=== PATIENT | female | born 1990 | race Caucasian/White ===

== ENCOUNTER → 2017-01-28 | Outpatient (CLI) | payer OTHER ==
[2014-10-16 00:02] VITALS: BP 140/90
--- NOTE | 2017-01-28 15:39 | RAD ---
Radionuclide gastric emptying study, 01/28/2017: History: Hiatal hernia, Gastroparesis This study was performed utilizing a solid test meal radiolabeled with 2.2 mCi of technetium 99m sulfur colloid. There is very little emptying of the stomach over the one hour in which we imaged. The time/activity curve is relatively flat. An accurate T1/2 cannot be calculated in this situation. IMPRESSION: Markedly delayed gastric emptying
== END | disposition home or self-care (01) ==
LOC: NM 13:47
PROVIDERS: ATTEND Internal Medicine Gastroenterology
DX: K31.84 Gastroparesis (principal); K30 Functional dyspepsia
CPT/HCPCS: 78264; A9541

== ENCOUNTER → 2017-07-01 | Outpatient (CLI) | payer OTHER ==
[2014-10-16 00:02] VITALS: BP 140/90
[2017-07-01 12:39] LABS: FREE T4 1.57 ng/dL (0.76-1.46)
== END | disposition home or self-care (01) ==
LOC: LAB 11:48
DX: E03.9 Hypothyroidism, unspecified (principal)
CPT/HCPCS: 36415; 84439; 84443

== ENCOUNTER → 2017-07-05 | Outpatient (CLI) | payer OTHER ==
[2014-10-16 00:02] VITALS: BP 140/90
== END | disposition home or self-care (01) ==
LOC: SPEC 14:35
DX: E03.9 Hypothyroidism, unspecified (principal)
CPT/HCPCS: 88175

== ENCOUNTER → 2017-10-20 | Outpatient (CLI) | payer OTHER ==
[2017-10-20 07:42] LABS: THYROID STIM HORMONE (TSH) 0.051 uIU/mL (0.358-3.74)
== END | disposition home or self-care (01) ==
LOC: LAB 05:34
DX: E03.9 Hypothyroidism, unspecified (principal)
CPT/HCPCS: 36415; 84443

== ENCOUNTER → 2017-12-05 | Outpatient (CLI) | payer OTHER ==
[2017-12-05 06:18] LABS: THYROID STIM HORMONE (TSH) 4.143 uIU/mL (0.358-3.74)
== END | disposition home or self-care (01) ==
LOC: LAB 04:34
DX: E03.9 Hypothyroidism, unspecified (principal)
CPT/HCPCS: 36415; 84443

== ENCOUNTER → 2019-03-12 | Outpatient (CLI) | payer OTHER ==
[2014-10-16 00:02] VITALS: BP 140/90
== END | disposition home or self-care (01) ==
LOC: LAB 10:43
PROVIDERS: ATTEND Nurse Practitioner Family
DX: E03.9 Hypothyroidism, unspecified (principal)
CPT/HCPCS: 36415; 84436; 84443

== ENCOUNTER → 2019-05-01 | Outpatient (CLI) | payer OTHER ==
[2014-10-16 00:02] VITALS: BP 140/90
== END | disposition home or self-care (01) ==
LOC: LAB 22:23
PROVIDERS: ATTEND Nurse Practitioner Family
DX: E03.9 Hypothyroidism, unspecified (principal)
CPT/HCPCS: 36415; 84443

== ENCOUNTER → 2020-01-10 | Outpatient (CLI) | payer OTHER ==
[2014-10-16 00:02] VITALS: BP 140/90
== END | disposition home or self-care (01) ==
LOC: LAB 06:18
PROVIDERS: ATTEND Internal Medicine Pulmonary Disease
DX: Z20.828 Contact with and (suspected) exposure to other viral communicable diseases (principal)
CPT/HCPCS: 36415; 99001; U0001

== ENCOUNTER 2020-04-08 12:01 | Emergency (ER) | payer SELFPAY ==
[~2020-04-08] VITALS: Ht 160 cm; Wt 93.2 kg
[2020-04-08] MEDS ORDERED: IV NORMAL SALINE 1000ML BAG 1,000 ML IV ONE (12:30)
[2020-04-08] MEDS ORDERED: ONDANSETRON PF 4 MG/2 ML VIAL. IV ONE (12:30)
[2020-04-08] MEDS ORDERED: MECLIZINE HCL 12.5 MG TABLET. PO ONE (12:30)
[2020-04-08 12:41] LABS: BASO % 1 % (0-3); EOS # 0.2 x10^3/uL (0.0-0.7); EOS % 3 % (0-3); HEMATOCRIT 40.5 % (36.0-47.0); HEMOGLOBIN 14.1 g/dL (12.0-15.5); LYMPH % 28 % (24-48); MEAN CORPUSCULAR HEMOGLOBIN 30 pg (25-35); MEAN CORPUSCULAR HGB CONC 35 g/dL (31-37); MEAN CORPUSCULAR VOLUME 84 fL (79-100); MONO # 0.4 x10^3/uL (0.0-1.1); MONO % 6 % (0-9); NEUT # 4.4 x10^3/uL (1.8-7.7); NEUT % 62 % (31-73); PLATELET COUNT 246 x10^3/uL (140-400); RED CELL DISTRIBUTION WIDTH 14.2 % (11.5-14.5); WHITE BLOOD COUNT 7.1 x10^3/uL (4.0-11.0)
[2020-04-08 12:43] LABS: CALCIUM 8.7 mg/dL (8.5-10.1); CREATININE 1.1 mg/dL (0.6-1.0); GFR 57.6; POTASSIUM 3.8 mmol/L (3.5-5.1)
[2020-04-08 12:47] LABS: PREG TEST PT QUAL NEGATIVE (NEG)
[2020-04-08 12:49] LABS: ALBUMIN 3.9 g/dL (3.4-5.0); ALBUMIN/GLOBULIN RATIO 1.2 (1.0-1.7); MAGNESIUM 2.2 mg/dL (1.8-2.4); TOTAL BILIRUBIN 0.8 mg/dL (0.2-1.0); TOTAL PROTEIN 7.2 g/dL (6.4-8.2)
--- NOTE | 2020-04-08 13:11 | RAD ---
CT HEAD WO CONTRAST Date: 04/08/2020 12:53 PM Clinical Indication: Reason: near syncope, dizzy / Spl. Instructions: / History: Comparison: None. Technique: 5 mm axial tomographic images were obtained of the head without contrast. These were viewed on brain and bone windows. One or more of the following dose reduction techniques were utilized: Automated exposure control (AEC), Adjustment of mA and/or kV according to patient size, Use of iterative reconstruction technique such as ASiR, CT scan done according to ALARA and image gently/image wisely Findings: The brain parenchyma is normal in attenuation. No intra- or extra-axial mass or fluid collection. No acute hemorrhage. The ventricles are normal in size, shape, and morphology. The reinoso-white matter junction is normal. The subarachnoid cisterns are patent. The visualized paranasal sinuses are normal. The visualized portions of the orbits and globes are normal. The mastoid air cells are clear. 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 Impression: No acute intracranial process. Electronically signed by: Jesu Son MD (04/08/2020 1:07 PM) [id number]
[2020-04-08 13:12] LABS: BILIRUBIN,URINE NEGATIVE (NEG); CLARITY,URINE CLEAR; COLOR,URINE YELLOW; NITRITE,URINE NEGATIVE (NEG); PROTEIN,URINE NEGATIVE (NEG-TRACE); UROBILINOGEN,URINE 0.2 mg/dL (0.2 mg/dL)
--- NOTE | 2020-04-08 13:12 | EKG ---
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
[2020-04-08 13:23] LABS: BACTERIA,URINE MODERATE /HPF (0-FEW); RBC,URINE 0 /HPF (0-2); SQUAMOUS EPITHELIAL CELL,UR MANY /LPF
[2020-04-08 13:30] VITALS: BP 140/87
[2020-04-08] MEDS ORDERED: MECL-75 PO (14:24)
--- NOTE | 2020-04-08 14:24 | PHYS DOC ---
Past Medical History Past Medical History: Hypothyroid, Other Additional Past Medical Histor: GASTROPARESIS Past Surgical History: Smoking Status: Never Smoker Alcohol Use: Occasionally Drug Use: None General Adult EDM: Chief Complaint: NEAR SYNCOPE HPI: HPI: Patient is a 30 year old female who presents with near syncope. Patient reports that she was at work when she suddenly started to feel dizzy and nauseated. Patient states she felt like she was going to pass out and when she tried telling her coworker she had trouble speaking. Patient reports that if she moves she has increased dizziness and feels like she is wobbling. She feels like her vision is shaky, and reports the dizziness worse with position changes. Patient denies any fever, chest pain, shortness of breath, numbness, tingling, palpitations, vomiting, diarrhea, headache, ear pain, tinnitus, focal deficit. She denies any recent injury or headache. Patient has a history of gastroparesis, GERD, and hypothyroid. She denies any pain at this time. Review of Systems: Review of Systems: Constitutional: Denies fever or chills. [] Eyes: Denies change in visual acuity. [] HENT: Denies nasal congestion or sore throat. [] Respiratory: Denies cough or shortness of breath. [] Cardiovascular: Denies chest pain or edema. [] GI: see HPI. [] : Denies dysuria. [] Musculoskeletal: Denies back pain or joint pain. [] Integument: Denies rash. [] Neurologic: Denies headache, focal weakness or sensory changes, see HPI. [] Lymphatic: Denies swollen glands. [] Psychiatric: Denies depression or anxiety. [] Heart Score: Risk Factors: Risk Factors: DM, Current or recent (<one month) smoker, HTN, HLP, family history of CAD, obesity. Risk Scores: Score 0 - 3: 2.5% MACE over next 6 weeks - Discharge Home Score 4 - 6: 20.3% MACE over next 6 weeks - Admit for Clinical Observation Score 7 - 10: 72.7% MACE over next 6 weeks - Early Invasive Strategies Current Medications: Current Medications Medications (Trade) Dose Ordered Sig/Siena Start Time Stop Time Status Last Admin Dose Admin Meclizine HCl (Antivert) 25 mg 1X ONCE 04/08/20 12:30 04/08/20 12:31 DC 04/08/20 12:36 25 MG Ondansetron HCl (Zofran) 4 mg 1X ONCE 04/08/20 12:30 04/08/20 12:31 DC 04/08/20 12:36 4 MG Sodium Chloride 1,000 ml @ 1,000 mls/hr 1X ONCE 04/08/20 12:30 04/08/20 13:29 DC 04/08/20 12:35 1,000 MLS/HR Allergies: Allergies: Allergies Coded Allergies Type Severity Reaction Last Updated Verified codeine Allergy Unknown unknown 10/16/14 No Physical Exam: PE: Constitutional: Well developed, well nourished, no acute distress, non-toxic appearance. [] HENT: Normocephalic, atraumatic, bilateral external ears normal, oropharynx moist, nose normal. [] Eyes: PERRLA, EOMI, conjunctiva normal, no discharge. [] Neck: Normal range of motion, no stridor. [] Cardiovascular:Heart rate regular rhythm, no murmur [] Lungs & Thorax: Bilateral breath sounds clear to auscultation, Respirations even and unlabored, no retractions, no respiratory distress [] Abdomen: Bowel sounds normal, soft, no tenderness Skin: Warm, dry, no erythema, no rash. [] Back: No tenderness [] Extremities: No tenderness, no cyanosis, no clubbing, ROM intact, no edema. [] Neurologic: Alert and oriented X 3, normal motor function, normal sensory function, no focal deficits noted. [] Psychologic: Affect normal, judgement normal, mood normal. [] Current Patient Data: Labs: Laboratory Tests Test 04/08/20 12:07 04/08/20 12:24 04/08/20 12:34 04/08/20 13:04 Glucose (Fingerstick) 132 mg/dL (70-99) H White Blood Count 7.1 x10^3/uL (4.0-11.0) Red Blood Count 4.80 x10^6/uL (3.50-5.40) Hemoglobin 14.1 g/dL (12.0-15.5) Hematocrit 40.5 % (36.0-47.0) Mean Corpuscular Volume 84 fL (79-100) Mean Corpuscular Hemoglobin 30 pg (25-35) Mean Corpuscular Hemoglobin Concent 35 g/dL (31-37) Red Cell Distribution Width 14.2 % (11.5-14.5) Platelet Count 246 x10^3/uL (140-400) Neutrophils (%) (Auto) 62 % (31-73) Lymphocytes (%) (Auto) 28 % (24-48) Monocytes (%) (Auto) 6 % (0-9) Eosinophils (%) (Auto) 3 % (0-3) Basophils (%) (Auto) 1 % (0-3) Neutrophils # (Auto) 4.4 x10^3/uL (1.8-7.7) Lymphocytes # (Auto) 2.0 x10^3/uL (1.0-4.8) Monocytes # (Auto) 0.4 x10^3/uL (0.0-1.1) Eosinophils # (Auto) 0.2 x10^3/uL (0.0-0.7) Basophils # (Auto) 0.0 x10^3/uL (0.0-0.2) Sodium Level 139 mmol/L (136-145) Potassium Level 3.8 mmol/L (3.5-5.1) Chloride Level 102 mmol/L (98-107) Carbon Dioxide Level 25 mmol/L (21-32) Anion Gap 12 (6-14) Blood Urea Nitrogen 13 mg/dL (7-20) Creatinine 1.1 mg/dL (0.6-1.0) H Estimated GFR (Cockcroft-Gault) 57.6 BUN/Creatinine Ratio 12 (6-20) Glucose Level 134 mg/dL (70-99) H Calcium Level 8.7 mg/dL (8.5-10.1) Magnesium Level 2.2 mg/dL (1.8-2.4) Total Bilirubin 0.8 mg/dL (0.2-1.0) Aspartate Amino Transferase (AST) 23 U/L (15-37) Alanine Aminotransferase (ALT) 41 U/L (14-59) Alkaline Phosphatase 75 U/L (46-116) Troponin I Quantitative < 0.017 ng/mL (0.000-0.055) Total Protein 7.2 g/dL (6.4-8.2) Albumin 3.9 g/dL (3.4-5.0) Albumin/Globulin Ratio 1.2 (1.0-1.7) Serum Test, Qualitative Negative (NEG) Urine Collection Type Unknown Urine Color Yellow Urine Clarity Clear Urine pH 7.0 (<5.0-8.0) Urine Specific [place] 1.010 (1.000-1.030) Urine Protein Negative mg/dL (NEG-TRACE) Urine Glucose (UA) Negative mg/dL (NEG) Urine Ketones (Stick) Negative mg/dL (NEG) Urine Blood Negative (NEG) Urine Nitrite Negative (NEG) Urine Bilirubin Negative (NEG) Urine Urobilinogen Dipstick 0.2 mg/dL (0.2 mg/dL) Urine Leukocyte Esterase Negative (NEG) Urine RBC 0 /HPF (0-2) Urine WBC 1-4 /HPF (0-4) Urine Squamous Epithelial Cells Many /LPF Urine Bacteria Moderate /HPF (0-FEW) Urine Mucus Slight /LPF Laboratory Tests 04/08/20 12:24 Laboratory Tests 04/08/20 12:24 Vital Signs: Vital Signs Date Time Temp Pulse Resp B/P (MAP) Pulse Ox O2 Delivery O2 Flow Rate FiO2 04/08/20 13:30 68 17 95 04/08/20 12:15 97.5 148/93 (111) Room Air 97.5 EKG: EK- SR rate of 94, no STEMI read by Dr. Comer. [] Radiology/Procedures: Radiology/Procedures: PROCEDURE: CT HEAD WO CONTRAST CT HEAD WO CONTRAST Date: 04/08/2020 12:53 PM Clinical Indication: Reason: near syncope, dizzy / Spl. Instructions: / History: Comparison: None. Technique: 5 mm axial tomographic images were obtained of the head without contrast. These were viewed on brain and bone windows. One or more of the following dose reduction techniques were utilized: Automated exposure control (AEC), Adjustment of mA and/or kV according to patient size, Use of iterative reconstruction technique such as ASiR, CT scan done according to ALARA and image gently/image wisely Findings: The brain parenchyma is normal in attenuation. No intra- or extra-axial mass or fluid collection. No acute hemorrhage. The ventricles are normal in size, shape, and morphology. The reinoso-white matter junction is normal. The subarachnoid cisterns are patent. The visualized paranasal sinuses are normal. The visualized portions of the orbits and globes are normal. The mastoid air cells are clear. The np topogram shows no lytic lesion or fracture. Impression: No acute intracranial process.[] Course & Med Decision Making: Course & Med Decision Making Pertinent Labs and Imaging studies reviewed. (See chart for details) 30-year-old female presented with complaints of dizziness and near syncope Work-up included CBC, CMP, UA, troponin, magnesium, and a CT head CBC was unremarkable, CMP revealed a creatinine of 1.1 otherwise unremarkable; troponin was less than 0.017; UA revealed 1-4 white blood cells but there were many squamous cells most likely contaminated CT head revealed no acute findings. Patient was given 1 L of normal saline, 4 mg of IV Zofran, and 25 mg of p.o. meclizine. She reported relief of her symptoms after these medications. Prescriptions were written for meclizine to take as needed dizziness, I advised the patient to take her Reglan at home as needed for nausea, increase fluids and rest. Follow- up with her primary care doctor next week, return to the ER if symptoms worsen. Patient verbalized an understanding of home care, medications, follow-up, and return to ED instructions and was in agreement with the plan of care. [] Dragon Disclaimer: Dragon Disclaimer: This electronic medical record was generated, in whole or in part, using a voice recognition dictation system. Departure Departure Impression: Primary Impression: Dizziness Additional Impression: Dehydration Disposition: 01 HOME, SELF-CARE Condition: STABLE Referrals: NURY LEACH (PCP) Patient Instructions: Dehydration, Adult, [id number], Dizziness, [id number] Additional Instructions: Fill the prescription and use as directed. Make sure that you change positions slowly for the next few days. Increase fluids at home. Follow-up with your primary care doctor if symptoms persist, return to the ER symptoms worsen. Scripts Meclizine Hcl (MECLIZINE HCL) 25 Mg Tablet 1 TAB PO PRN TID PRN for DIZZINESS for 7 Days, #21 TAB 0 Refills Prov: CELINE SALEEM APRN 04/08/20 Justicifation of Admission Dx: Justifications for Admission: Justification of Admission Dx: N/A CELINE SALEEM APRN Apr 08, 2020 14:24
== END 2020-04-08 14:35 | disposition home or self-care (01) ==
LOC: ER 12:01
DX: E86.0 Dehydration (principal); R42 Dizziness and giddiness; R55 Syncope and collapse; R11.0 Nausea; E03.9 Hypothyroidism, unspecified; Z98.890 Other specified postprocedural states; Z88.5 Allergy status to narcotic agent; Z79.899 Other long term (current) drug therapy
CPT/HCPCS: 36415; 70450; 80053; 81001; 82962; 83735; 84484; 84703; 85025; 87086; 93005; 96361; 96374; 99285; J2405; J7030; J8597

== ENCOUNTER → 2020-04-22 | Outpatient (CLI) | payer OTHER ==
[2020-04-08 13:30] VITALS: BP 140/87
[~2020-04-22] MED LIST: MECL-75 PO
[2020-04-22 12:42] LABS: FREE T4 1.17 ng/dL (0.76-1.46); THYROID STIM HORMONE (TSH) 13.458 uIU/mL (0.358-3.74)
== END | disposition home or self-care (01) ==
LOC: LAB 10:52
PROVIDERS: ATTEND Nurse Practitioner Family
DX: E03.9 Hypothyroidism, unspecified (principal)
CPT/HCPCS: 36415; 84439; 84443

== ENCOUNTER → 2020-07-26 | Outpatient (CLI) | payer OTHER | LOC: ER 19:29 | PROVIDERS: ATTEND Internal Medicine Pulmonary Disease | DX: R05 Cough (principal); R53.81 Other malaise; M79.10 Myalgia, unspecified site; R51.9 Headache, unspecified; R09.81 Nasal congestion; Z20.828 Contact with and (suspected) exposure to other viral communicable diseases | CPT/HCPCS: U0003-CS ==

== ENCOUNTER → 2020-08-25 | Outpatient (CLI) | payer OTHER | LOC: SPEC 10:36 | PROVIDERS: ATTEND Obstetrics & Gynecology | DX: Z01.411 Encounter for gynecological examination (general) (routine) with abnormal findings (principal) | CPT/HCPCS: 88175 ==

== ENCOUNTER 2020-09-20 20:33 | Emergency (ER) | payer OTHER ==
[~2020-09-20] VITALS: Ht 162.6 cm; Wt 93.2 kg
[2020-09-20] MEDS ORDERED: IV NORMAL SALINE 1000ML BAG 1,000 ML IV ONE (21:00)
[2020-09-20] MEDS ORDERED: ONDANSETRON PF 4 MG/2 ML VIAL. IVP ONE (21:00)
[2020-09-20 21:07] LABS: BASO % 1 % (0-3); EOS # 0.3 x10^3/uL (0.0-0.7); EOS % 4 % (0-3); HEMATOCRIT 41.1 % (36.0-47.0); LYMPH # 2.4 x10^3/uL (1.0-4.8); LYMPH % 28 % (24-48); MEAN CORPUSCULAR HEMOGLOBIN 28 pg (25-35); MEAN CORPUSCULAR HGB CONC 34 g/dL (31-37); MEAN CORPUSCULAR VOLUME 83 fL (79-100); MONO # 0.4 x10^3/uL (0.0-1.1); MONO % 5 % (0-9); NEUT # 5.4 x10^3/uL (1.8-7.7); NEUT % 63 % (31-73); PLATELET COUNT 273 x10^3/uL (140-400); RED BLOOD COUNT 4.94 x10^6/uL (3.50-5.40); RED CELL DISTRIBUTION WIDTH 13.6 % (11.5-14.5); WHITE BLOOD COUNT 8.6 x10^3/uL (4.0-11.0)
[2020-09-20 21:16] LABS: CALCIUM 8.8 mg/dL (8.5-10.1); CREATININE 0.9 mg/dL (0.6-1.0); GFR 72.6; POTASSIUM 3.7 mmol/L (3.5-5.1)
[2020-09-20 21:24] LABS: ALBUMIN 3.9 g/dL (3.4-5.0); ALBUMIN/GLOBULIN RATIO 1.1 (1.0-1.7); TOTAL PROTEIN 7.4 g/dL (6.4-8.2)
[2020-09-20 21:49] LABS: BILIRUBIN,URINE NEGATIVE (NEG); CLARITY,URINE CLEAR; COLOR,URINE YELLOW; NITRITE,URINE NEGATIVE (NEG); PH,URINE 6.5 (<5.0-8.0); PROTEIN,URINE NEGATIVE (NEG-TRACE); UROBILINOGEN,URINE 0.2 mg/dL (0.2 mg/dL)
[2020-09-20 22:10] LABS: BACTERIA,URINE MOD /HPF (0-FEW)
[2020-09-20] MEDS ORDERED: METOCLOPRAMIDE HCL 10 MG/2 ML VIAL. IVP ONE (22:30)
[2020-09-20] MEDS ORDERED: CONTRAST GIVEN. MC PRN (22:45)
[2020-09-20] MEDS ORDERED: IOHEXOL 240 MG/ML 50ML VIAL. PO ONE (22:45)
[2020-09-20] MEDS ORDERED: IOHEXOL 300 MG/ML 100ML VIAL. IV ONE (22:45)
--- NOTE | 2020-09-21 00:35 | RAD ---
INDICATION: Reason: abd pain, RuQ, vomiting, diarrhea, OMNI 300 75 ML IV, OMNI 240 50 ML PO / Spl. In structions: STARTED DRINKING 2230 SCAN @2330 / History: . COMPARISON: October 2014 TECHNIQUE: Axial CT images obtained through the abdomen and pelvis with contrast. One or more of the following individualized dose reduction techniques were utilized for this examinat ion: 1. Automated exposure control; 2. Adjustment of the mA and/or kV according to patient size; 3 . Use of iterative reconstruction technique. FINDINGS: Abdominal aorta is not aneurysmal. Mild scattered plaque. Liver is low density which can be seen with fatty infiltration. No peripancreatic fluid collection. Spleen unremarkable. No left hydronephrosis. Mild prominence right renal pelvis. Urinary bladder is partially distended. There is a couple mildly prominent wall loops of bowel in the midabdomen. No periappendiceal inflamma tory changes. Degenerative changes of the spine with mild osteophyte formation as well as disc protrusions. IMPRESSION: * No evidence of appendicitis. * Mild right-sided pelvic caliectasis without a radiopaque obstructive ureter stone. * Prominent wall of a couple loops of small bowel are prominent in thickness. Would correlate with s ymptoms given that enteritis could have this appearance. Electronically signed by: Evens Rob MD (09/21/2020 12:32 AM) [id number]
[2020-09-21] MEDS ORDERED: CEPH-264 PO (00:41)
[2020-09-21] MEDS ORDERED: ONDA4TAB12 PO (00:41)
--- NOTE | 2020-09-21 00:42 | ED.ADGEN ---
Past Medical History Past Medical History: GERD, Hypothyroid, Other Additional Past Medical Histor: Gastroparesis Past Surgical History: , Tonsillectomy Smoking Status: Former Smoker Alcohol Use: Occasionally Drug Use: None General Adult EDM: Chief Complaint: ABDOMINAL PAIN HPI: HPI: Patient is a 30-year-old female past medical history of gastroparesis who presents to the emergency room complaining of diffuse abdominal pain that is worse on the right upper abdomen. She has had nausea and vomiting for the last 4 days without any relief. She continues to generally feel unwell and is unable to eat. This does not feel like her gastroenteritis. She states the pain feels like cramping and occasional sharp pain. She is never had anything similar to this in the past. Pain is constant in nature. It does improve if she lays on her side or puts pressure on it. She denies any fever. She has loss of appetite. She denies any diarrhea or constipation. Review of Systems: Review of Systems: Complete ROS is negative unless otherwise documented in HPI Current Medications: Current Medications Medications (Trade) Dose Ordered Sig/Siena Start Time Stop Time Status Last Admin Dose Admin Info (CONTRAST GIVEN -- Rx MONITORING) 1 each PRN DAILY PRN 09/20/20 22:45 09/22/20 22:44 Iohexol (Omnipaque 240 Mg/ml) 50 ml 1X ONCE 09/20/20 22:45 09/20/20 22:46 DC Iohexol (Omnipaque 300 Mg/ml) 75 ml 1X ONCE 09/20/20 22:45 09/20/20 22:46 DC Metoclopramide HCl (Reglan Vial) 10 mg 1X ONCE 09/20/20 22:30 09/20/20 22:31 DC 09/20/20 22:35 10 MG Ondansetron HCl (Zofran) 4 mg 1X ONCE 09/20/20 21:00 09/20/20 21:01 DC 09/20/20 21:31 4 MG Sodium Chloride 1,000 ml @ 1,000 mls/hr 1X ONCE 09/20/20 21:00 09/20/20 21:59 DC 09/20/20 21:29 1,000 MLS/HR Allergies: Allergies: Allergies Coded Allergies Type Severity Reaction Last Updated Verified codeine Allergy Unknown unknown 10/16/14 No Physical Exam: PE: General: Awake, alert, NAD. Well Nourished, well hydrated. Cooperative HEENT: Atraumatic, EOMI, PERRL, airway patent, moist oral mucosa Neck: Supple, trachea midline Respiratory: CTA bilaterally, normal effort, no wheezing/crackles CV: RRR, no murmur, cap refill <2 GI: Soft, nondistended, right upper quadrant tenderness MSK: No obvious deformities Skin: Warm, dry, intact Neuro: A&O x3, speech NL, sensory and motor grossly intact, no focal deficits Psych: Normal affect, normal mood, not suicidal or homicidal Current Patient Data: Labs: Laboratory Tests Test 09/20/20 20:55 09/20/20 21:38 09/20/20 21:43 White Blood Count 8.6 x10^3/uL (4.0-11.0) Red Blood Count 4.94 x10^6/uL (3.50-5.40) Hemoglobin 14.0 g/dL (12.0-15.5) Hematocrit 41.1 % (36.0-47.0) Mean Corpuscular Volume 83 fL (79-100) Mean Corpuscular Hemoglobin 28 pg (25-35) Mean Corpuscular Hemoglobin Concent 34 g/dL (31-37) Red Cell Distribution Width 13.6 % (11.5-14.5) Platelet Count 273 x10^3/uL (140-400) Neutrophils (%) (Auto) 63 % (31-73) Lymphocytes (%) (Auto) 28 % (24-48) Monocytes (%) (Auto) 5 % (0-9) Eosinophils (%) (Auto) 4 % (0-3) H Basophils (%) (Auto) 1 % (0-3) Neutrophils # (Auto) 5.4 x10^3/uL (1.8-7.7) Lymphocytes # (Auto) 2.4 x10^3/uL (1.0-4.8) Monocytes # (Auto) 0.4 x10^3/uL (0.0-1.1) Eosinophils # (Auto) 0.3 x10^3/uL (0.0-0.7) Basophils # (Auto) 0.0 x10^3/uL (0.0-0.2) Sodium Level 138 mmol/L (136-145) Potassium Level 3.7 mmol/L (3.5-5.1) Chloride Level 104 mmol/L (98-107) Carbon Dioxide Level 27 mmol/L (21-32) Anion Gap 7 (6-14) Blood Urea Nitrogen 13 mg/dL (7-20) Creatinine 0.9 mg/dL (0.6-1.0) Estimated GFR (Cockcroft-Gault) 72.6 BUN/Creatinine Ratio 14 (6-20) Glucose Level 106 mg/dL (70-99) H Calcium Level 8.8 mg/dL (8.5-10.1) Total Bilirubin 1.0 mg/dL (0.2-1.0) Aspartate Amino Transferase (AST) 19 U/L (15-37) Alanine Aminotransferase (ALT) 38 U/L (14-59) Alkaline Phosphatase 82 U/L (46-116) Total Protein 7.4 g/dL (6.4-8.2) Albumin 3.9 g/dL (3.4-5.0) Albumin/Globulin Ratio 1.1 (1.0-1.7) Lipase 81 U/L (73-393) Urine Collection Type Void Urine Color Yellow Urine Clarity Clear Urine pH 6.5 (<5.0-8.0) Urine Specific [place] 1.020 (1.000-1.030) Urine Protein Negative mg/dL (NEG-TRACE) Urine Glucose (UA) Negative mg/dL (NEG) Urine Ketones (Stick) Negative mg/dL (NEG) Urine Blood Negative (NEG) Urine Nitrite Negative (NEG) Urine Bilirubin Negative (NEG) Urine Urobilinogen Dipstick 0.2 mg/dL (0.2 mg/dL) Urine Leukocyte Esterase Negative (NEG) Urine RBC 1-2 /HPF (0-2) Urine WBC 1-4 /HPF (0-4) Urine Squamous Epithelial Cells Mod /LPF Urine Bacteria Mod /HPF (0-FEW) Urine Mucus Slight /LPF POC Urine HCG, Qualitative Hcg negative (Negative) Laboratory Tests 09/20/20 20:55 Laboratory Tests 09/20/20 20:55 Vital Signs: Vital Signs Date Time Temp Pulse Resp B/P (MAP) Pulse Ox O2 Delivery O2 Flow Rate FiO2 09/20/20 20:35 98.3 101 18 168/88 (114) 98 Room Air 98.3 EKG: EKG: [] Heart Score: Risk Factors: Risk Factors: DM, Current or recent (<one month) smoker, HTN, HLP, family history of CAD, obesity. Risk Scores: Score 0 - 3: 2.5% MACE over next 6 weeks - Discharge Home Score 4 - 6: 20.3% MACE over next 6 weeks - Admit for Clinical Observation Score 7 - 10: 72.7% MACE over next 6 weeks - Early Invasive Strategies Radiology/Procedures: Radiology/Procedures: [] Course & Med Decision Making: Course & Med Decision Making Pertinent Labs and Imaging studies reviewed. (See chart for details) Patient is a 30-year-old female presents to the emergency room complaining of nausea, vomiting, upper abdominal pain. This may be related to her prior abdominal issues, however this does seem to be different than normal and patient is significantly tender in the right upper quadrant raising concern for pancreatitis or cholecystitis. Pyelonephritis or kidney stone could also be possible. Patient was given symptomatic care and labs were drawn. Labs appear normal. CT abdomen pelvis was done. CT shows some mild hydronephrosis which could be related to recently passed kidney stone as well as some enteritis. Patient is feeling better would like to go home. She does have a UTI which will be treated with antibiotics. She will be given nausea medication. Patient's test results and vitals while in the ED were fully reviewed and discussed with the patient. Patient is stable and at this time does not need admission to the hospital. We have discussed strict return precautions and the importance of following up with their Primary Care Physician. Patient stated understanding and was given an opportunity to ask any questions. Patient is in agreement with plan. Yarely Disclaimer: Yarely Disclaimer: This electronic medical record was generated, in whole or in part, using a voice recognition dictation system. Departure Departure Impression: Primary Impression: Dehydration Additional Impression: Flank pain Disposition: 01 DC HOME SELF CARE/HOMELESS Condition: IMPROVED Referrals: CELINE SHEARER [employer]OY[employer] EXAMINER (PCP) Patient Instructions: Dehydration, Adult Scripts Ondansetron (ONDANSETRON ODT) 4 Mg Tab.rapdis 1 TAB PO PRN Q6-8HRS PRN for NAUSEA, #16 TAB Prov: UMAIR TANNER MD 09/21/20 Cephalexin (KEFLEX) 500 Mg Capsule 1 CAP PO Q12HR, #14 CAP Prov: UMAIR TANNER MD 09/21/20 Problem Qualifiers UMAIR TANNER MD Sep 21, 2020 00:42
[2020-09-21 01:07] VITALS: BP 132/60
== END 2020-09-21 01:07 | disposition home or self-care (01) ==
LOC: ER 20:33
DX: E86.0 Dehydration (principal); R10.11 Right upper quadrant pain; R11.2 Nausea with vomiting, unspecified; K21.9 Gastro-esophageal reflux disease without esophagitis; E03.9 Hypothyroidism, unspecified; Z98.890 Other specified postprocedural states; Z87.891 Personal history of nicotine dependence; Z90.89 Acquired absence of other organs; Z88.5 Allergy status to narcotic agent
CPT/HCPCS: 36415; 74177; 80053; 81001; 81025; 83690; 85025; 96361; 96374; 96375; 99285; J2405; J2765; J7030

== ENCOUNTER → 2021-10-07 | Outpatient (CLI) | payer OTHER ==
[~2021-10-07] MED LIST changes: +CEPH-264 PO; +ONDA4TAB12 PO
== END ==
LOC: LAB 01:17
PROVIDERS: ATTEND Internal Medicine Pulmonary Disease
DX: R51.9 Headache, unspecified (principal); R19.7 Diarrhea, unspecified; R11.2 Nausea with vomiting, unspecified; R09.81 Nasal congestion; R68.83 Chills (without fever); R53.81 Other malaise; R05.9 Cough, unspecified; Z20.822 Contact with and (suspected) exposure to COVID-19
CPT/HCPCS: U0003; U0005

== ENCOUNTER → 2021-11-05 | Outpatient (CLI) | payer OTHER | LOC: LAB 07:05 | PROVIDERS: ATTEND Internal Medicine Pulmonary Disease | DX: R50.9 Fever, unspecified (principal); R51.9 Headache, unspecified; R53.81 Other malaise; M79.10 Myalgia, unspecified site; Z20.822 Contact with and (suspected) exposure to COVID-19 | CPT/HCPCS: U0003; U0005 ==

== ENCOUNTER → 2022-02-16 | Outpatient (CLI) | payer BC ==
[2022-02-16 21:40] LABS: BASO # 0.1 x10^3/uL (0.0-0.2); BASO % 1 % (0-3); EOS # 0.2 x10^3/uL (0.0-0.7); EOS % 2 % (0-3); HEMATOCRIT 39.5 % (36.0-47.0); HEMOGLOBIN 13.4 g/dL (12.0-15.5); LYMPH # 2.9 x10^3/uL (1.0-4.8); LYMPH % 29 % (24-48); MEAN CORPUSCULAR HEMOGLOBIN 28 pg (25-35); MEAN CORPUSCULAR HGB CONC 34 g/dL (31-37); MEAN CORPUSCULAR VOLUME 82 fL (79-100); MONO # 0.6 x10^3/uL (0.0-1.1); MONO % 6 % (0-9); NEUT # 6.3 x10^3/uL (1.8-7.7); NEUT % 62 % (31-73); PLATELET COUNT 289 x10^3/uL (140-400); RED BLOOD COUNT 4.81 x10^6/uL (3.50-5.40); RED CELL DISTRIBUTION WIDTH 15.2 % (11.5-14.5); WHITE BLOOD COUNT 10.1 x10^3/uL (4.0-11.0)
[2022-02-16 22:01] LABS: ALBUMIN 4.3 g/dL (3.4-5.0); ALBUMIN/GLOBULIN RATIO 1.1 (1.0-1.7); CALCIUM 9.4 mg/dL (8.5-10.1); GFR 63.9; POTASSIUM 3.8 mmol/L (3.5-5.1); TOTAL BILIRUBIN 0.9 mg/dL (0.2-1.0); TOTAL PROTEIN 8.3 g/dL (6.4-8.2)
[2022-02-17 02:20] LABS: CHOLESTEROL/HDL RATIO 5.1
== END ==
LOC: LAB 20:42
PROVIDERS: ATTEND Nurse Practitioner
DX: Z13.220 Encounter for screening for lipoid disorders (principal); K21.9 Gastro-esophageal reflux disease without esophagitis; E03.9 Hypothyroidism, unspecified
CPT/HCPCS: 36415; 80053; 80061; 84436; 84443; 85025